=== PATIENT | male | born 1940 | race Caucasian/White ===

== ENCOUNTER → 2021-01-15 17:53 | Outpatient (CLI) | payer MEDICARE, OTHER ==
[2021-01-15 19:39] LABS: BASOPHILS 0.7 % (0-2); EOSINOPHILS 3.1 % (0-7); HEMOGLOBIN 8.5 g/dL (13.5-17.5); LYMPHOCYTES 13.4 % (15-50); MCH 25.8 pg (26.0-34.0); MCHC 30.3 g/dL (31.0-37.0); MCV 85.1 fL (80.0-100.0); MEAN PLATELET VOLUME 7.6 fL (7.4-10.4); MONOCYTES 11.6 % (2-11); NEUTROPHILS 71.2 % (40-80); PLATELET COUNT 423 10x3/uL (130-400); RBC 3.29 10x6/uL (4.20-6.10); RDW 16.1 % (11.5-14.5); WBC 13.4 10x3/uL (4.8-10.8)
[2021-01-15 20:27] LABS: ALBUMIN 3.1 g/dL (3.4-5.0); ALKALINE PHOSPHATASE 92 U/L (30-120); ALT (SGPT) 28 U/L (10-68); CALC OSMOLALITY 280 mosm/kg (275-300); CALCIUM 8.7 mg/dL (8.5-10.1); CARBON DIOXIDE 31.1 mmol/L (21.0-32.0); CHLORIDE - SERUM 100 mmol/L (98-107); CHOL - HDL RATIO 1.4 ratio (2.3-4.9); CHOLESTEROL, TOTAL 120 mg/dL (0-200); CREATININE - SERUM 0.9 mg/dL (0.6-1.3); DIGOXIN 1.18 ng/mL (0.90-2.00); GLUCOSE 82 mg/dL (74-106); HDL CHOLESTEROL 86 mg/dL (32-96); LDL CHOLESTEROL 28 mg/dL (0-100); LDL-HDL RATIO 0.3 ratio (1.5-3.5); POTASSIUM - SERUM 3.8 mmol/L (3.5-5.1); SODIUM 139 mmol/L (136-145); TRIGLYCERIDE 34 mg/dL (30-200); UREA NITROGEN 23 mg/dL (7-18); eGFR NON AFRICAN AMERICAN 87 mL/min (90-120)
== END | disposition home or self-care (01) ==
LOC: D.LABREF 17:53
PROVIDERS: ATTEND Family Medicine
DX: E11.59 Type 2 diabetes mellitus with other circulatory complications (principal); E83.50 Unspecified disorder of calcium metabolism; Z51.81 Encounter for therapeutic drug level monitoring; E83.52 Hypercalcemia; D64.9 Anemia, unspecified; E78.5 Hyperlipidemia, unspecified; I25.10 Atherosclerotic heart disease of native coronary artery without angina pectoris; R53.1 Weakness; J44.9 Chronic obstructive pulmonary disease, unspecified

== ENCOUNTER → 2021-01-22 18:59 | Outpatient (CLI) | payer MEDICARE, OTHER ==
[2021-01-22 19:18] LABS: BASOPHILS 0.3 % (0-2); EOSINOPHILS 0.7 % (0-7); HEMOGLOBIN 8.1 g/dL (13.5-17.5); LYMPHOCYTES 2.9 % (15-50); MCH 24.7 pg (26.0-34.0); MCHC 30.1 g/dL (31.0-37.0); MCV 82.2 fL (80.0-100.0); MEAN PLATELET VOLUME 7.8 fL (7.4-10.4); NEUTROPHILS 90.1 % (40-80); PLATELET COUNT 365 10x3/uL (130-400); RBC 3.28 10x6/uL (4.20-6.10); RDW 17.1 % (11.5-14.5); WBC 19.5 10x3/uL (4.8-10.8)
[2021-01-22 19:32] LABS: CALC OSMOLALITY 283 mosm/kg (275-300); CALCIUM 8.5 mg/dL (8.5-10.1); CARBON DIOXIDE 31.3 mmol/L (21.0-32.0); CHLORIDE - SERUM 98 mmol/L (98-107); GLUCOSE 113 mg/dL (74-106); POTASSIUM - SERUM 3.6 mmol/L (3.5-5.1); PRO BNP 1453 pg/mL (0-450); SODIUM 141 mmol/L (136-145); UREA NITROGEN 19 mg/dL (7-18); eGFR NON AFRICAN AMERICAN 77 mL/min (90-120)
== END | disposition home or self-care (01) ==
LOC: D.LABREF 18:59
PROVIDERS: ATTEND Family Medicine
DX: R06.1 Stridor (principal); R78.89 Finding of other specified substances, not normally found in blood